=== PATIENT | female | born 1950 | race Caucasian/White ===

== ENCOUNTER 2017-04-14 16:33 | Outpatient (CLI) | payer OTHER | END 2017-04-14 16:34 | LOC: LABRHC 16:33 | PROVIDERS: ATTEND Family Medicine | DX: R30.0 Dysuria (principal) | CPT/HCPCS: 87086; 87186 ==

== ENCOUNTER 2017-04-15 08:18 | Outpatient (CLI) | payer OTHER ==
[2017-04-15 09:08] LABS: eGFR (African) > 60; eGFR (Non-African) > 60
== END 2017-04-15 08:20 ==
LOC: LAB 08:18
PROVIDERS: ATTEND Family Medicine
DX: E78.2 Mixed hyperlipidemia (principal); E55.9 Vitamin D deficiency, unspecified; E03.9 Hypothyroidism, unspecified
CPT/HCPCS: 36415; 80053; 80061; 82306; 84439; 84443; 84481; 84482

== ENCOUNTER 2018-03-15 14:58 | Outpatient (CLI) | payer OTHER ==
--- NOTE | 2018-03-15 17:25 | Diagnostic Imaging Report ---
BRANDIN INMAN [facility] [address] [place], [place]. [address] DALIA OLMOS [facility] [address] [place], [place]. [address] Report Submission Date: Mar 15, 2018 4:13:27 PM BINDER TECHNICIAN Patient Study Name: CHRISTINA YOUSIF Date: Mar 15, 2018 3:39:46 PM BINDER TECHNICIAN Modality Type: DX Gender: F Description: LOWER EXTREMITY : 48 Institution: [facility] Physician: DALIA OLMOS Left ankle History: Follow-up fibular fracture Three views of the left ankle were obtained and comparison made with March 01, 2018. The fracture line is slightly less apparent on today's radiographs when compared with the prior consistent with a slight component of interval healing. No new osseous abnormalities are noted. Impression: Slight interval component of healing with regard to the distal fibular fracture. Electronically signed on Mar 15, 2018 4:13:27 PM BINDER TECHNICIAN by: Cleo NATARAJAN
--- NOTE | 2018-03-30 15:56 | OP Clinic Progress Note ---
SUBJECTIVE: Dolores Tadeo is a 67-year-old female who presented to the clinic today for follow up of a left fibular fracture. She has been in a cast for the last 2 weeks and apparently got her cast wet. Upon removal of the cast, there did not appear to be any negative sequelae. The patient denies any other concerns or pain at this time. The patient does not admit to any fevers, chills, nausea, vomiting, shortness of breath, or chest pain. OBJECTIVE: VITAL SIGNS: T: 98.5 degrees Fahrenheit, R: 18, BP: 159/77, P: 86, oxygen saturation is 95% on room air. Upon discussion of the elevated blood pressure, the patient states that she has white coat syndrome and she also denies checking the blood pressure on her own outside of the doctor office. She was encouraged to check at a [employer] or other location when she is not at a provider's office to make sure that the blood pressure is controlled and if it is elevated, she is encouraged to reach out to her primary care doctor. She understands and agrees. VASCULAR: DP and PT pulses are 2+ of the left foot. Capillary refill time is less than 3 seconds to the toes of the left foot. There was no edema noted of the left foot or ankle. DERMATOLOGIC: There is no ecchymosis noted along the left ankle fibular area at all. There is no obvious deformity noted. MUSCULOSKELETAL: There is mild to no pain on palpation noted to the distal left fibula at the fracture site. The patient only states that she can tell that I am pushing on it. There is no other erythema or open lesions noted or pressure areas. NEUROLOGIC: Light touch sensation is intact to the toes of the left foot. ASSESSMENT: Closed fracture of the distal end of the left fibula, subsequent encounter, routine healing. X-rays were discussed and shown to the patient demonstrating healing. I do not have a final read of the x-ray but it is obvious that there is improvement in healing upon my exam with increased bony bridging across the fracture site. I am not comfortable putting the patient in a boot yet, so the plan is to apply a cast again today. PROCEDURE #1: [id number] cast was removed today prior to x-rays. PROCEDURE #2: Below-the knee cast was applied consisting of a stocking net. A copious amount of padding followed by 4 layers of 4-inch fiberglass cast material. The patient tolerated the procedure well. The cast was left to dry with her foot in a 90- degree position at the ankle for about 10 minutes prior to leaving the office today. PLAN: Return to clinic in 2 weeks in the morning at [facility] for removal of cast and obtaining ankle x-rays and we will hopefully be able to switch the patient to a boot at that time. We were able to give the patient a prescription for a tall ortho boot at this time which she may obtain utilizing her right foot for a measurement but she knows she is not able to use that boot until we see her in clinic next time. She will plan on bringing that boot to the clinic for her next visit. If for some reason we are not seeing enough healing or clinically, she seems to be having more pain, we will not apply a boot, but rather, we will consider a eddjs-ekh-[id number] cast again. We will likely do a boot for 2 weeks following which we will get her into a regular shoe with possibly an ankle brace and we will consider more physical therapy at that time. The patient understands and agrees with the plan going forward at this time and is in good spirits. cc: Dr. Lou NATARAJAN
== END 2018-03-15 15:00 ==
LOC: POD 14:58
PROVIDERS: ATTEND Podiatrist Foot & Ankle Surgery
DX: S82.832D Other fracture of upper and lower end of left fibula, subsequent encounter for closed fracture with routine healing (principal)
CPT/HCPCS: 29405; 73610

== ENCOUNTER 2018-03-29 09:13 | Outpatient (CLI) | payer OTHER ==
--- NOTE | 2018-03-29 10:34 | Diagnostic Imaging Report ---
DALIA OLMOS [facility] [address] [facility] [address] [address] Report Submission Date: Mar 29, 2018 10:26:49 AM QUALITY ASSURANCE QA LAB ANALYST Patient Study Name: CHRISTINA YOUSIF Date: Mar 29, 2018 9:45:41 AM QUALITY ASSURANCE QA LAB ANALYST Modality Type: DX Gender: F Description: LOWER EXTREMITY : 48 Institution: [facility] Physician: DALIA OLMOS Left ankle History: Follow up fracture Three views of the left ankle were obtained and comparison made with March 15, 2018. There is perhaps slightly greater healing bone formation at the distal fibular fracture site. No new osseous abnormalities are noted. Impression: Perhaps slightly greater healing bone formation at the distal fibular fracture site compared with March 15, 2018. Electronically signed on Mar 29, 2018 10:26:49 AM QUALITY ASSURANCE QA LAB ANALYST by: Cleo ANTARAJAN
--- NOTE | 2018-04-08 09:55 | OP Clinic Progress Note ---
SUBJECTIVE: Dolores Tadeo is a 67-year-old female who presented today for follow up of the left fibular fracture, mildly displaced to non-displaced. The patient states that she is having no pain at this time nor any other problems with the foot or ankle at this time. The patient has been getting around with her roll about scooter and non-weightbearing to the left lower extremity completely. The patient does not admit to any fevers, chills, nausea, vomiting, shortness of breath or chest pain at this time. She admits that she is utilizing her baby aspirin twice daily as instructed. OBJECTIVE: VITAL SIGNS: T: 97.6 degrees Fahrenheit, BP: 146/84, heart rate 82, R: 16, oxygen saturation is 96% on room air. VASCULAR: DP and PT pulses of the left foot are 2+. Capillary refill time is less than 3 seconds to the toes of the left foot. There is no edema noted to the left foot or ankle. DERMATOLOGIC: There is mild xerosis noted from dry skin because of a cast. There is no ecchymosis, erythema, or any other concerning areas or skin lesions. MUSCULOSKELETAL: There is absolutely no pain on palpation noted to the left lateral ankle at the distal fibula site where the fracture is noted. The patient has fair range of motion about the left ankle and the patient does not have any other gross abnormalities noted. The patient has 5/5 muscle strength in all directions of ankle and subtalar joint on the left side. NEUROLOGIC: Light touch sensation is intact to all the toes of the left foot. ASSESSMENT: 1. Left fibular fracture follow up, subsequent visit. 2. Healing fracture. PROCEDURE PERFORMED: [id number] removal today. The patient tolerated the procedure well. RADIOLOGY: X-rays of the left ankle were applied after removing the cast today and slight healing of the fracture site was noted. I believe the angle of the picture showed a little bit more of a gap in the posterior site of the lateral malleolus at the fracture site and I believe that has been present but was just noticeable on the last picture. PLAN: The patient had the read from the radiologist noting improving in the fracture healing and due to absolutely no pain in the left lateral ankle, I feel comfortable taking her out of the cast and putting her in an ankle brace at this time, which she must wear at all times. A prescription for the ankle brace was given and she will pick it up at [facility]. She was encouraged to hold on to her boot for a few more days just to make sure that she tolerates being in an ankle brace at all times well and if not, that she may need to get into the boot. Otherwise, she will be able to return the boot, as it was never opened nor used. The patient was also instructed that she may stop using aspirin after about 2 more days of using it twice daily as she transitions into being into an ankle brace at all times on her left lower extremity. She will likely be in the ankle brace for 4 to 8 weeks and transition her out of it as long as she is feeling great at that time still. The patient understands this and we will see her back in the [facility] in 4 weeks from now where we will likely keep her in a brace at that point but may take her out if she is doing great. I do not believe we will get x-rays again unless there is any turn for the worse. cc: Dr. Lou NATARAJAN
== END 2018-03-29 09:18 | disposition home or self-care (01) ==
LOC: POD 09:13
PROVIDERS: ATTEND Podiatrist Foot & Ankle Surgery
DX: S82.832S Other fracture of upper and lower end of left fibula, sequela (principal)
CPT/HCPCS: 73610

== ENCOUNTER 2018-05-21 15:27 | Outpatient (CLI) | payer OTHER ==
[2018-05-21 16:10] LABS: eGFR (Non-African) > 60
[2018-05-21 16:17] LABS: BASOPHILS % 0.6 (0.0-1.5); EOSINOPHILS % 2.9 % (0.0-6.8); MEAN CORPUSCULAR HEMOGLOBIN 30.8 pg (28.0-34.0); MONOCYTES % 7.1 % (0.0-11.0)
--- NOTE | 2018-05-22 06:33 | Diagnostic Imaging Report ---
DARBY FIGUEREDO [facility] [address] [facility] [address] [address] Report Submission Date: May 21, 2018 4:25:18 PM PROMOTION PRODUCER Patient Study Name: CHRISTINA YOUSIF Date: May 21, 2018 3:42:29 PM PROMOTION PRODUCER Modality Type: DX Gender: F Description: CHEST 2VIEW : 48 Institution: [facility] Physician: DARBY FIGUEREDO CHEST 2VIEW HISTORY: SOB AND CHEST HEAVINESS. FINDINGS: And the PA & lateral chest x-ray demonstrate lungs to be clear of focal infiltrates and expanded bilaterally. The cardiac silhouette within normal limits. Mild degenerative changes of the thoracic spine are seen. IMPRESSION: No active intrathoracic disease seen. Electronically signed on May 21, 2018 4:25:18 PM PROMOTION PRODUCER by: Otilio NATARAJAN
== END 2018-05-21 15:30 ==
LOC: LAB 15:27
PROVIDERS: ATTEND Nurse Practitioner Family
DX: R00.0 Tachycardia, unspecified (principal); R00.2 Palpitations; R06.02 Shortness of breath; R07.89 Other chest pain
CPT/HCPCS: 36415; 71046; 80053; 82553; 83880; 84439; 84443; 84481; 84484; 85025